=== PATIENT | male | born 1940 | race Two or more races ===

== ENCOUNTER 2017-08-03 06:56 | Outpatient (CLI) | payer OTHER ==
[~2017-08-03 06:56] MED LIST: AZITHROMYCIN500 MG PO; DOLOGESIC CAPSU1 CAP PO; IOPHEN DM-100 MG/5 M PO; NEURONTIN300 MG PO; RAZADYNE4 MG; TUSICOF LIQUID120 ML PO; VITAMIN C500 MG; ZITHROMAX500 MG PO
== END 2017-08-03 07:05 | disposition home or self-care (01) ==
LOC: LAB 06:56
DX: Z80.3 Family history of malignant neoplasm of breast (principal); Z80.0 Family history of malignant neoplasm of digestive organs; D59.8 Other acquired hemolytic anemias; G30.0 Alzheimer's disease with early onset; D70.2 Other drug-induced agranulocytosis; E16.1 Other hypoglycemia; K86.2 Cyst of pancreas; K29.40 Chronic atrophic gastritis without bleeding; D51.1 Vitamin B12 deficiency anemia due to selective vitamin B12 malabsorption with proteinuria; D55.0 Anemia due to glucose-6-phosphate dehydrogenase [G6PD] deficiency; E03.8 Other specified hypothyroidism; E06.3 Autoimmune thyroiditis; R97.0 Elevated carcinoembryonic antigen [CEA]; R97.8 Other abnormal tumor markers

== ENCOUNTER 2018-01-30 07:00 | Outpatient (CLI) | payer OTHER | END 2018-01-30 07:16 | disposition home or self-care (01) | LOC: LAB 07:00 | DX: E11.9 Type 2 diabetes mellitus without complications (principal); I11.9 Hypertensive heart disease without heart failure; I87.2 Venous insufficiency (chronic) (peripheral); E78.2 Mixed hyperlipidemia; E06.9 Thyroiditis, unspecified; E04.2 Nontoxic multinodular goiter; J30.89 Other allergic rhinitis; K86.2 Cyst of pancreas; R80.8 Other proteinuria; R31.29 Other microscopic hematuria; N18.2 Chronic kidney disease, stage 2 (mild); R97.20 Elevated prostate specific antigen [PSA]; D55.0 Anemia due to glucose-6-phosphate dehydrogenase [G6PD] deficiency; E16.8 Other specified disorders of pancreatic internal secretion; G30.8 Other Alzheimer's disease; J39.8 Other specified diseases of upper respiratory tract; J04.10 Acute tracheitis without obstruction; E55.9 Vitamin D deficiency, unspecified; K30 Functional dyspepsia; F51.8 Other sleep disorders not due to a substance or known physiological condition; Z68.29 Body mass index [BMI] 29.0-29.9, adult; Z86.010 Personal history of colon polyps; E03.8 Other specified hypothyroidism ==

== ENCOUNTER 2018-03-08 09:44 | Outpatient (CLI) | payer OTHER | END 2018-03-08 09:46 | disposition home or self-care (01) | LOC: RAD 09:44 | DX: J45.31 Mild persistent asthma with (acute) exacerbation (principal); R06.02 Shortness of breath ==

== ENCOUNTER 2018-05-03 07:47 | Outpatient (CLI) | payer OTHER | END 2018-05-03 09:10 | disposition home or self-care (01) | LOC: LAB 07:47 | DX: I87.2 Venous insufficiency (chronic) (peripheral) (principal); E78.2 Mixed hyperlipidemia; E06.9 Thyroiditis, unspecified; E04.2 Nontoxic multinodular goiter; J30.89 Other allergic rhinitis; K86.2 Cyst of pancreas; R80.8 Other proteinuria; N18.2 Chronic kidney disease, stage 2 (mild); E16.9 Disorder of pancreatic internal secretion, unspecified; G30.8 Other Alzheimer's disease; J39.8 Other specified diseases of upper respiratory tract; J04.10 Acute tracheitis without obstruction; E55.9 Vitamin D deficiency, unspecified; K30 Functional dyspepsia; F51.8 Other sleep disorders not due to a substance or known physiological condition; Z68.29 Body mass index [BMI] 29.0-29.9, adult; Z86.010 Personal history of colon polyps ==

== ENCOUNTER 2019-05-03 06:24 | Outpatient (CLI) | payer OTHER | END 2019-05-03 15:00 | disposition home or self-care (01) | LOC: LAB 06:24 | DX: N40.0 Benign prostatic hyperplasia without lower urinary tract symptoms (principal); R35.1 Nocturia; R97.20 Elevated prostate specific antigen [PSA] ==

== ENCOUNTER 2019-07-24 07:44 | Outpatient (CLI) | payer OTHER | END 2019-07-24 08:02 | disposition home or self-care (01) | LOC: LAB 07:44 | DX: N40.0 Benign prostatic hyperplasia without lower urinary tract symptoms (principal); R35.1 Nocturia; R97.20 Elevated prostate specific antigen [PSA]; I87.2 Venous insufficiency (chronic) (peripheral); I70.0 Atherosclerosis of aorta; E06.9 Thyroiditis, unspecified; E04.2 Nontoxic multinodular goiter; E03.8 Other specified hypothyroidism; J30.89 Other allergic rhinitis; K86.2 Cyst of pancreas; R80.8 Other proteinuria; N18.3 Chronic kidney disease, stage 3 (moderate); R31.29 Other microscopic hematuria; J10.1 Influenza due to other identified influenza virus with other respiratory manifestations; E16.8 Other specified disorders of pancreatic internal secretion; G47.00 Insomnia, unspecified; G30.8 Other Alzheimer's disease; J39.8 Other specified diseases of upper respiratory tract; E55.9 Vitamin D deficiency, unspecified; K30 Functional dyspepsia; Z68.27 Body mass index [BMI] 27.0-27.9, adult; Z86.010 Personal history of colon polyps; N39.0 Urinary tract infection, site not specified; Z80.3 Family history of malignant neoplasm of breast; Z80.0 Family history of malignant neoplasm of digestive organs; D70.2 Other drug-induced agranulocytosis; D51.1 Vitamin B12 deficiency anemia due to selective vitamin B12 malabsorption with proteinuria; D70.8 Other neutropenia; D59.2 Drug-induced nonautoimmune hemolytic anemia; D59.8 Other acquired hemolytic anemias; G30.0 Alzheimer's disease with early onset; K29.40 Chronic atrophic gastritis without bleeding; D51.0 Vitamin B12 deficiency anemia due to intrinsic factor deficiency; E06.3 Autoimmune thyroiditis; E16.2 Hypoglycemia, unspecified; D50.8 Other iron deficiency anemias; D51.8 Other vitamin B12 deficiency anemias; K90.89 Other intestinal malabsorption; R97.0 Elevated carcinoembryonic antigen [CEA]; R97.8 Other abnormal tumor markers; C25.8 Malignant neoplasm of overlapping sites of pancreas; C22.9 Malignant neoplasm of liver, not specified as primary or secondary ==

== ENCOUNTER 2019-09-18 14:59 | Emergency (ER) | payer OTHER ==
[~2019-09-18] VITALS: Ht 172.7 cm; Wt 83.9 kg
[2019-09-18] MEDS ORDERED: RAZADYNE ER16 MG (15:49)
[2019-09-18] MEDS ORDERED: CLARITIN5 MG (15:49)
[2019-09-18] MEDS ORDERED: LEVOTHYROXINE25 MCG (15:49)
== END 2019-09-18 17:21 | disposition home or self-care (01) ==
LOC: ER 14:59
DX: M54.5 Low back pain (principal)

== ENCOUNTER 2019-10-02 14:18 | Outpatient (CLI) | payer OTHER ==
[~2019-10-02 14:18] MED LIST changes: +CLARITIN5 MG; +LEVOTHYROXINE25 MCG; +RAZADYNE ER16 MG
== END 2019-10-02 14:28 | disposition home or self-care (01) ==
LOC: LAB 14:18
DX: I87.2 Venous insufficiency (chronic) (peripheral) (principal); I70.0 Atherosclerosis of aorta; E06.9 Thyroiditis, unspecified; E04.2 Nontoxic multinodular goiter; E03.8 Other specified hypothyroidism; J45.30 Mild persistent asthma, uncomplicated; J30.1 Allergic rhinitis due to pollen; K86.2 Cyst of pancreas; R80.8 Other proteinuria; N18.3 Chronic kidney disease, stage 3 (moderate); R97.20 Elevated prostate specific antigen [PSA]; R31.9 Hematuria, unspecified; D55.0 Anemia due to glucose-6-phosphate dehydrogenase [G6PD] deficiency; J10.1 Influenza due to other identified influenza virus with other respiratory manifestations; E16.8 Other specified disorders of pancreatic internal secretion; G47.09 Other insomnia; M51.37 Other intervertebral disc degeneration, lumbosacral region; G30.8 Other Alzheimer's disease; H81.4 Vertigo of central origin; J39.8 Other specified diseases of upper respiratory tract; E55.9 Vitamin D deficiency, unspecified; K30 Functional dyspepsia; Z68.27 Body mass index [BMI] 27.0-27.9, adult; Z86.010 Personal history of colon polyps; R05 Cough; M54.2 Cervicalgia; C61 Malignant neoplasm of prostate; N40.0 Benign prostatic hyperplasia without lower urinary tract symptoms; R35.1 Nocturia; B96.29 Other Escherichia coli [E. coli] as the cause of diseases classified elsewhere

== ENCOUNTER 2019-10-10 07:07 | Outpatient (CLI) | payer OTHER | END 2019-10-10 07:22 | disposition home or self-care (01) | LOC: NUCLEAR 07:07 | DX: N40.0 Benign prostatic hyperplasia without lower urinary tract symptoms (principal); R35.1 Nocturia; R97.20 Elevated prostate specific antigen [PSA]; C61 Malignant neoplasm of prostate | CPT/HCPCS: 78803; A9503 ==

== ENCOUNTER → 2020-02-04 06:52 | Outpatient (CLI) | payer OTHER | END | disposition home or self-care (01) | LOC: LAB 06:52 | PROVIDERS: ATTEND Internal Medicine Hematology & Oncology | DX: D50.8 Other iron deficiency anemias (principal); E55.9 Vitamin D deficiency, unspecified; E03.8 Other specified hypothyroidism; C25.9 Malignant neoplasm of pancreas, unspecified; R97.8 Other abnormal tumor markers; R97.0 Elevated carcinoembryonic antigen [CEA]; Z80.3 Family history of malignant neoplasm of breast; Z80.0 Family history of malignant neoplasm of digestive organs; D55.0 Anemia due to glucose-6-phosphate dehydrogenase [G6PD] deficiency; D70.2 Other drug-induced agranulocytosis; D51.1 Vitamin B12 deficiency anemia due to selective vitamin B12 malabsorption with proteinuria; D70.8 Other neutropenia; D59.8 Other acquired hemolytic anemias; G30.0 Alzheimer's disease with early onset; K86.2 Cyst of pancreas; K29.40 Chronic atrophic gastritis without bleeding; D51.0 Vitamin B12 deficiency anemia due to intrinsic factor deficiency; E06.3 Autoimmune thyroiditis; E16.2 Hypoglycemia, unspecified; I87.2 Venous insufficiency (chronic) (peripheral); I70.0 Atherosclerosis of aorta; E06.5 Other chronic thyroiditis; E04.2 Nontoxic multinodular goiter; J45.30 Mild persistent asthma, uncomplicated; J30.1 Allergic rhinitis due to pollen; R80.8 Other proteinuria; N18.3 Chronic kidney disease, stage 3 (moderate); R97.20 Elevated prostate specific antigen [PSA]; R31.29 Other microscopic hematuria; J10.1 Influenza due to other identified influenza virus with other respiratory manifestations; E16.8 Other specified disorders of pancreatic internal secretion; G47.00 Insomnia, unspecified; G30.8 Other Alzheimer's disease; H81.4 Vertigo of central origin; Z86.010 Personal history of colon polyps; Z68.27 Body mass index [BMI] 27.0-27.9, adult; K30 Functional dyspepsia ==

== ENCOUNTER 2020-02-14 07:03 | Outpatient (CLI) | payer OTHER | END 2020-02-14 07:14 | disposition home or self-care (01) | LOC: LAB 07:03 | PROVIDERS: ATTEND Internal Medicine Hematology & Oncology | DX: C61 Malignant neoplasm of prostate (principal); N40.0 Benign prostatic hyperplasia without lower urinary tract symptoms; R97.20 Elevated prostate specific antigen [PSA]; D70.2 Other drug-induced agranulocytosis; D51.1 Vitamin B12 deficiency anemia due to selective vitamin B12 malabsorption with proteinuria; D70.8 Other neutropenia; D59.2 Drug-induced nonautoimmune hemolytic anemia; D59.8 Other acquired hemolytic anemias; G30.0 Alzheimer's disease with early onset; K86.2 Cyst of pancreas; Z80.0 Family history of malignant neoplasm of digestive organs; K29.40 Chronic atrophic gastritis without bleeding; Z80.3 Family history of malignant neoplasm of breast; D51.0 Vitamin B12 deficiency anemia due to intrinsic factor deficiency; E03.8 Other specified hypothyroidism; E06.3 Autoimmune thyroiditis; E16.2 Hypoglycemia, unspecified; R35.1 Nocturia ==

== ENCOUNTER → 2020-10-27 07:13 | Outpatient (CLI) | payer OTHER | END | disposition home or self-care (01) | LOC: LAB 07:13 | PROVIDERS: ATTEND Internal Medicine | DX: C61 Malignant neoplasm of prostate (principal); E03.8 Other specified hypothyroidism; N39.0 Urinary tract infection, site not specified; I87.2 Venous insufficiency (chronic) (peripheral); I70.0 Atherosclerosis of aorta; E06.9 Thyroiditis, unspecified; E04.2 Nontoxic multinodular goiter; J45.30 Mild persistent asthma, uncomplicated; J30.1 Allergic rhinitis due to pollen; K86.2 Cyst of pancreas; R80.8 Other proteinuria; N18.30 Chronic kidney disease, stage 3 unspecified; R97.20 Elevated prostate specific antigen [PSA]; R31.9 Hematuria, unspecified; D55.0 Anemia due to glucose-6-phosphate dehydrogenase [G6PD] deficiency; J10.1 Influenza due to other identified influenza virus with other respiratory manifestations; E16.8 Other specified disorders of pancreatic internal secretion; G47.09 Other insomnia; M51.37 Other intervertebral disc degeneration, lumbosacral region; G30.8 Other Alzheimer's disease; H81.4 Vertigo of central origin; J39.8 Other specified diseases of upper respiratory tract; J04.10 Acute tracheitis without obstruction; E55.9 Vitamin D deficiency, unspecified; E53.8 Deficiency of other specified B group vitamins; K30 Functional dyspepsia; Z68.27 Body mass index [BMI] 27.0-27.9, adult; Z86.010 Personal history of colon polyps; N18.2 Chronic kidney disease, stage 2 (mild) ==

== ENCOUNTER 2020-12-01 07:03 | Outpatient (CLI) | payer OTHER | END 2020-12-01 15:24 | disposition home or self-care (01) | LOC: LAB 07:03 | PROVIDERS: ATTEND Urology | DX: C61 Malignant neoplasm of prostate (principal); R31.1 Benign essential microscopic hematuria ==

== ENCOUNTER 2020-12-22 10:35 | Emergency (ER) | payer OTHER ==
[~2020-12-22] VITALS: Ht 172.7 cm; Wt 81.6 kg
== END 2020-12-22 15:59 | disposition home or self-care (01) ==
LOC: ER 10:35
DX: R42 Dizziness and giddiness (principal)

== ENCOUNTER → 2020-12-26 06:20 | Outpatient (CLI) | payer OTHER ==
[~2020-12-26 06:20] MED LIST changes: +MECLIZINE HCL25 MG PO; +PEPCID AC20 MG PO
== END | disposition home or self-care (01) ==
LOC: LAB 06:20
PROVIDERS: ATTEND Internal Medicine Hematology & Oncology
DX: D50.8 Other iron deficiency anemias (principal); I10 Essential (primary) hypertension; R74.02 Elevation of levels of lactic acid dehydrogenase [LDH]; K76.89 Other specified diseases of liver; D51.8 Other vitamin B12 deficiency anemias; R97.0 Elevated carcinoembryonic antigen [CEA]; R97.8 Other abnormal tumor markers; R97.20 Elevated prostate specific antigen [PSA]; Z80.3 Family history of malignant neoplasm of breast; Z80.0 Family history of malignant neoplasm of digestive organs; C61 Malignant neoplasm of prostate; D70.2 Other drug-induced agranulocytosis; D51.1 Vitamin B12 deficiency anemia due to selective vitamin B12 malabsorption with proteinuria; D70.8 Other neutropenia; D59.2 Drug-induced nonautoimmune hemolytic anemia; G30.0 Alzheimer's disease with early onset; K86.2 Cyst of pancreas; K29.40 Chronic atrophic gastritis without bleeding; D51.0 Vitamin B12 deficiency anemia due to intrinsic factor deficiency; E03.8 Other specified hypothyroidism; E06.3 Autoimmune thyroiditis; E16.2 Hypoglycemia, unspecified; R00.2 Palpitations; E11.9 Type 2 diabetes mellitus without complications; E78.2 Mixed hyperlipidemia

== ENCOUNTER 2020-12-29 17:16 | Outpatient (CLI) | payer OTHER ==
[~2020-12-29 17:16] MED LIST changes: -MECLIZINE HCL25 MG PO; -PEPCID AC20 MG PO
== END 2020-12-29 17:20 | disposition home or self-care (01) ==
LOC: LAB 17:16
PROVIDERS: ATTEND Urology
DX: R97.20 Elevated prostate specific antigen [PSA] (principal)

== ENCOUNTER 2021-02-11 07:13 | Outpatient (CLI) | payer OTHER | END 2021-02-11 07:15 | disposition home or self-care (01) | LOC: SONOGRAMA 07:13 | PROVIDERS: ATTEND Urology | DX: C61 Malignant neoplasm of prostate (principal); R97.20 Elevated prostate specific antigen [PSA]; D29.1 Benign neoplasm of prostate ==

== ENCOUNTER 2021-02-20 10:58 | Emergency (ER) | payer OTHER ==
[~2021-02-20] VITALS: Ht 172.7 cm; Wt 81.6 kg
[2021-02-20] MEDS ORDERED: MECLIZINE HCL25 MG PO (15:00)
[2021-02-20] MEDS ORDERED: PEPCID AC20 MG PO (15:00)
== END 2021-02-20 15:39 | disposition home or self-care (01) ==
LOC: ER 10:58
DX: R11.0 Nausea (principal); R42 Dizziness and giddiness; R10.13 Epigastric pain

== ENCOUNTER 2021-03-06 06:47 | Outpatient (CLI) | payer OTHER ==
[~2021-03-06 06:47] MED LIST changes: +MECLIZINE HCL25 MG PO; +PEPCID AC20 MG PO
== END 2021-03-06 06:48 | disposition home or self-care (01) ==
LOC: LAB 06:47 → RAD 06:47 → LAB 06:48
PROVIDERS: ATTEND Specialist
DX: I10 Essential (primary) hypertension (principal); D64.89 Other specified anemias; R82.998 Other abnormal findings in urine; E10.9 Type 1 diabetes mellitus without complications; R70.0 Elevated erythrocyte sedimentation rate; M05.79 Rheumatoid arthritis with rheumatoid factor of multiple sites without organ or systems involvement; R76.0 Raised antibody titer; M32.8 Other forms of systemic lupus erythematosus; M06.4 Inflammatory polyarthropathy; M1A.09X0 Idiopathic chronic gout, multiple sites, without tophus (tophi); M19.049 Primary osteoarthritis, unspecified hand

== ENCOUNTER 2021-05-09 07:13 | Outpatient (CLI) | payer OTHER | END 2021-05-09 07:20 | disposition home or self-care (01) | LOC: LAB 07:13 | PROVIDERS: ATTEND Internal Medicine Hematology & Oncology | DX: I10 Essential (primary) hypertension (principal); R74.02 Elevation of levels of lactic acid dehydrogenase [LDH]; K76.89 Other specified diseases of liver; R97.0 Elevated carcinoembryonic antigen [CEA]; R97.8 Other abnormal tumor markers; R97.20 Elevated prostate specific antigen [PSA]; Z80.3 Family history of malignant neoplasm of breast; Z80.0 Family history of malignant neoplasm of digestive organs; C61 Malignant neoplasm of prostate; D55.0 Anemia due to glucose-6-phosphate dehydrogenase [G6PD] deficiency; D70.2 Other drug-induced agranulocytosis; D51.1 Vitamin B12 deficiency anemia due to selective vitamin B12 malabsorption with proteinuria; D70.8 Other neutropenia; D59.8 Other acquired hemolytic anemias; G30.0 Alzheimer's disease with early onset; K86.2 Cyst of pancreas; K29.40 Chronic atrophic gastritis without bleeding; E03.8 Other specified hypothyroidism; E06.3 Autoimmune thyroiditis; E16.2 Hypoglycemia, unspecified ==

== ENCOUNTER 2021-06-06 09:01 | Emergency (ER) | payer OTHER ==
[~2021-06-06] VITALS: Ht 172.7 cm; Wt 81.6 kg
== END 2021-06-06 12:29 | disposition home or self-care (01) ==
LOC: ER 09:01
DX: B34.9 Viral infection, unspecified (principal); Z20.822 Contact with and (suspected) exposure to COVID-19

== ENCOUNTER 2021-09-05 07:07 | Outpatient (CLI) | payer OTHER | END 2021-09-05 08:16 | disposition home or self-care (01) | LOC: LAB 07:07 | PROVIDERS: ATTEND Internal Medicine Hematology & Oncology | DX: D50.8 Other iron deficiency anemias (principal); R79.9 Abnormal finding of blood chemistry, unspecified; I10 Essential (primary) hypertension; R74.02 Elevation of levels of lactic acid dehydrogenase [LDH]; K76.89 Other specified diseases of liver; E55.9 Vitamin D deficiency, unspecified; C25.9 Malignant neoplasm of pancreas, unspecified; R97.8 Other abnormal tumor markers; R97.0 Elevated carcinoembryonic antigen [CEA]; R97.20 Elevated prostate specific antigen [PSA]; Z80.3 Family history of malignant neoplasm of breast; Z80.0 Family history of malignant neoplasm of digestive organs; C61 Malignant neoplasm of prostate; D55.0 Anemia due to glucose-6-phosphate dehydrogenase [G6PD] deficiency; D70.2 Other drug-induced agranulocytosis; D51.1 Vitamin B12 deficiency anemia due to selective vitamin B12 malabsorption with proteinuria; D70.8 Other neutropenia; D59.8 Other acquired hemolytic anemias; G30.0 Alzheimer's disease with early onset; K86.2 Cyst of pancreas; K29.40 Chronic atrophic gastritis without bleeding; D51.0 Vitamin B12 deficiency anemia due to intrinsic factor deficiency; E03.9 Hypothyroidism, unspecified; E06.3 Autoimmune thyroiditis ==

== ENCOUNTER 2021-10-20 17:47 | Emergency (ER) | payer OTHER ==
[~2021-10-20] VITALS: Ht 172.7 cm; Wt 82.1 kg
[2021-10-20] MEDS ORDERED: MONTELUKAST 10 MG (18:27)
== END 2021-10-20 21:33 | disposition home or self-care (01) ==
LOC: ER 17:47
DX: U07.1 COVID-19 (principal); R50.9 Fever, unspecified; R53.81 Other malaise; R05.9 Cough, unspecified; J30.9 Allergic rhinitis, unspecified; E03.9 Hypothyroidism, unspecified; Z87.891 Personal history of nicotine dependence

== ENCOUNTER 2021-12-15 06:45 | Outpatient (CLI) | payer OTHER ==
[~2021-12-15 06:45] MED LIST changes: +MONTELUKAST 10 MG
== END 2021-12-15 06:50 | disposition home or self-care (01) ==
LOC: LAB 06:45
PROVIDERS: ATTEND Internal Medicine Hematology & Oncology
DX: D50.8 Other iron deficiency anemias (principal); I10 Essential (primary) hypertension; R74.02 Elevation of levels of lactic acid dehydrogenase [LDH]; K76.89 Other specified diseases of liver; C25.9 Malignant neoplasm of pancreas, unspecified; R97.8 Other abnormal tumor markers; R97.0 Elevated carcinoembryonic antigen [CEA]; R97.20 Elevated prostate specific antigen [PSA]; Z20.3 Contact with and (suspected) exposure to rabies; C61 Malignant neoplasm of prostate; D70.2 Other drug-induced agranulocytosis; D51.1 Vitamin B12 deficiency anemia due to selective vitamin B12 malabsorption with proteinuria; D70.8 Other neutropenia; D59.2 Drug-induced nonautoimmune hemolytic anemia; G30.0 Alzheimer's disease with early onset; K86.2 Cyst of pancreas; K29.40 Chronic atrophic gastritis without bleeding; D51.0 Vitamin B12 deficiency anemia due to intrinsic factor deficiency; E03.9 Hypothyroidism, unspecified; E06.3 Autoimmune thyroiditis; E16.2 Hypoglycemia, unspecified; Z80.0 Family history of malignant neoplasm of digestive organs

== ENCOUNTER 2022-02-11 14:09 | Outpatient (CLI) | payer OTHER | END 2022-02-11 14:10 | disposition home or self-care (01) | LOC: NUCLEAR 14:09 | PROVIDERS: ATTEND Specialist | DX: M81.0 Age-related osteoporosis without current pathological fracture (principal) ==

== ENCOUNTER → 2022-02-17 06:26 | Outpatient (CLI) | payer OTHER | END | disposition home or self-care (01) | LOC: LAB 06:26 | PROVIDERS: ATTEND Urology | DX: R97.20 Elevated prostate specific antigen [PSA] (principal) ==

== ENCOUNTER 2022-05-17 06:59 | Outpatient (CLI) | payer OTHER | END 2022-05-17 07:00 | disposition home or self-care (01) | LOC: LAB 06:59 | PROVIDERS: ATTEND Internal Medicine Hematology & Oncology | DX: C61 Malignant neoplasm of prostate (principal); D55.0 Anemia due to glucose-6-phosphate dehydrogenase [G6PD] deficiency; D70.2 Other drug-induced agranulocytosis; D51.1 Vitamin B12 deficiency anemia due to selective vitamin B12 malabsorption with proteinuria; D70.8 Other neutropenia; G30.0 Alzheimer's disease with early onset; K86.2 Cyst of pancreas; K29.40 Chronic atrophic gastritis without bleeding; E03.9 Hypothyroidism, unspecified; E06.3 Autoimmune thyroiditis; E16.2 Hypoglycemia, unspecified; R97.20 Elevated prostate specific antigen [PSA]; Z80.3 Family history of malignant neoplasm of breast ==

== ENCOUNTER 2022-06-29 06:43 | Outpatient (CLI) | payer OTHER | END 2022-06-29 06:52 | disposition home or self-care (01) | LOC: LAB 06:43 | PROVIDERS: ATTEND Internal Medicine Hematology & Oncology | DX: N18.30 Chronic kidney disease, stage 3 unspecified (principal) ==

== ENCOUNTER → 2022-08-13 06:26 | Outpatient (CLI) | payer OTHER | END | disposition home or self-care (01) | LOC: LAB 06:26 | PROVIDERS: ATTEND Internal Medicine Hematology & Oncology | DX: D50.8 Other iron deficiency anemias (principal); I10 Essential (primary) hypertension; R74.02 Elevation of levels of lactic acid dehydrogenase [LDH]; K76.89 Other specified diseases of liver; C25.9 Malignant neoplasm of pancreas, unspecified; R97.8 Other abnormal tumor markers; R97.20 Elevated prostate specific antigen [PSA]; Z80.3 Family history of malignant neoplasm of breast; C61 Malignant neoplasm of prostate; D70.2 Other drug-induced agranulocytosis; D51.1 Vitamin B12 deficiency anemia due to selective vitamin B12 malabsorption with proteinuria; D70.8 Other neutropenia; D59.2 Drug-induced nonautoimmune hemolytic anemia; D59.8 Other acquired hemolytic anemias; G30.0 Alzheimer's disease with early onset; K86.2 Cyst of pancreas; K29.40 Chronic atrophic gastritis without bleeding; D51.0 Vitamin B12 deficiency anemia due to intrinsic factor deficiency; E06.3 Autoimmune thyroiditis; E03.9 Hypothyroidism, unspecified; E16.2 Hypoglycemia, unspecified ==

== ENCOUNTER 2022-12-09 04:10 | Emergency (ER) | payer OTHER ==
[~2022-12-09] VITALS: Ht 172.7 cm; Wt 81.6 kg
== END 2022-12-09 07:07 | disposition home or self-care (01) ==
LOC: ER 04:10
DX: K29.00 Acute gastritis without bleeding (principal); K59.00 Constipation, unspecified; R10.13 Epigastric pain
CPT/HCPCS: 96365; 96372; 99282; J2765; J3490

== ENCOUNTER 2022-12-23 06:54 | Outpatient (CLI) | payer OTHER | END 2022-12-23 06:55 | disposition home or self-care (01) | LOC: LAB 06:54 | PROVIDERS: ATTEND Internal Medicine Gastroenterology | DX: R10.13 Epigastric pain (principal) ==

== ENCOUNTER 2022-12-23 07:05 | Outpatient (CLI) | payer OTHER | END 2022-12-23 07:09 | disposition home or self-care (01) | LOC: SONOGRAMA 07:05 | PROVIDERS: ATTEND Internal Medicine Gastroenterology | DX: R10.13 Epigastric pain (principal) ==

== ENCOUNTER 2023-01-28 08:37 | Outpatient (CLI) | payer OTHER | END 2023-01-28 08:41 | disposition home or self-care (01) | LOC: RAD 08:37 | PROVIDERS: ATTEND Internal Medicine | DX: M25.562 Pain in left knee (principal) ==

== ENCOUNTER 2023-02-20 08:33 | Emergency (ER) | payer OTHER ==
[~2023-02-20] VITALS: Ht 172.7 cm; Wt 81.6 kg
== END 2023-02-20 12:07 | disposition home or self-care (01) ==
LOC: ER
PROVIDERS: General Practice
DX: U07.1 COVID-19 (principal); E03.9 Hypothyroidism, unspecified
CPT/HCPCS: 36415; 96372; 99284; J1100

== ENCOUNTER 2024-03-08 06:44 | Outpatient (CLI) | payer OTHER ==
[2024-03-08 07:30] LABS: HEMATOCRIT 39.2 % (39.0-48.0); HEMOGLOBIN 13.6 g/dL (13-16.00); MEAN CELL VOLUME 99.4 fL (80.0-100.00); MEAN CORPUSCULAR HEMOGLOBIN 34.4 pg (27.00-32.0); MEAN CORPUSCULAR HGB CONC 34.6 g/dl (32.0-36.0); PLATELET COUNT 167 K/uL (150-450); RED BLOOD COUNT 3.94 M/uL (4.00-6.00); RED CELL DISTRIBUTION WIDTH 13.5 % (11.5-14.5)
[2024-03-08 07:46] LABS: URINE APPEARANCE Cloudy; URINE BILIRRUBIN Negative (NEGATIVE); URINE BLOOD Trace; URINE COLOR Yellow; URINE GLUCOSE Negative (NEGATIVE); URINE KETONE Negative (NEGATIVE); URINE LEUKOCYTE Negative; URINE NITRATE Negative; URINE PROTEIN Negative (NEGATIVE); URINE UROBILINOGEN 0.2 E.U./dl
[2024-03-08 07:48] LABS: URINE BACTERIA 7.5 uL (0.0-1933); URINE RBC 39.6 uL (0.0-20.8)
[2024-03-08 07:53] LABS: URINE EPITHELIAL CELLS 0.7 uL (0.0-38.8); URINE WBC 1.6 uL (0.0-23.2)
[2024-03-08 08:20] LABS: ALBUMIN 3.7 gm/dL (3.4-5.0); BILIRUBIN TOTAL 0.63 mg/dL (0.3-1.2); CALCIUM 9.2 mg/dL (8.5-10.1); CREATININE SERUM 1.39 mg/dL (0.70-1.30); GFR 48.68; GLOBULINA 3.7 G/DL (2.4-3.5); MAGNESIUM 2.4 mg/dL (1.8-2.4); PHOSPHOROUS 2.6 mg/dL (2.5-4.9); POTASSIUM 4.15 mEq/L (3.5-5.1); TOTAL PROTEIN 7.4 gm/dL (6.4-8.2)
[2024-03-08 08:47] LABS: URIC ACID 5.4 mg/dL (3.5-8.5)
== END 2024-03-08 06:50 | disposition home or self-care (01) ==
LOC: LAB 06:44
PROVIDERS: ATTEND Specialist
DX: E79.0 Hyperuricemia without signs of inflammatory arthritis and tophaceous disease (principal); I10 Essential (primary) hypertension; D64.9 Anemia, unspecified; E10.9 Type 1 diabetes mellitus without complications; E83.39 Other disorders of phosphorus metabolism; E61.2 Magnesium deficiency

== ENCOUNTER 2024-03-08 07:07 | Outpatient (CLI) | payer OTHER | END 2024-03-08 07:12 | disposition home or self-care (01) | LOC: RAD 07:07 | PROVIDERS: ATTEND Specialist | DX: M17.0 Bilateral primary osteoarthritis of knee (principal); M17.11 Unilateral primary osteoarthritis, right knee; M17.12 Unilateral primary osteoarthritis, left knee ==

== ENCOUNTER 2024-03-17 07:04 | Outpatient (CLI) | payer OTHER ==
[2024-03-17 09:36] LABS: ALBUMIN 3.6 gm/dL (3.4-5.0); BILIRUBIN TOTAL 0.49 mg/dL (0.3-1.2); CALCIUM 9.1 mg/dL (8.5-10.1); CREATININE SERUM 1.43 mg/dL (0.70-1.30); GFR 47.11; GLOBULINA 3.7 G/DL (2.4-3.5); POTASSIUM 4.28 mEq/L (3.5-5.1); TOTAL PROTEIN 7.3 gm/dL (6.4-8.2)
[2024-03-17 09:43] LABS: PROSTATIC SPECIFIC ANTIGEN 6.81 NG/ML (0.010-4.00)
[2024-03-17 09:58] LABS: HEMATOCRIT 37.9 % (39.0-48.0); HEMOGLOBIN 13.1 g/dL (13-16.00); MEAN CORPUSCULAR HEMOGLOBIN 33.7 pg (27.00-32.0); MEAN CORPUSCULAR HGB CONC 34.4 g/dl (32.0-36.0); PLATELET COUNT 168 K/uL (150-450); RED BLOOD COUNT 3.87 M/uL (4.00-6.00); RED CELL DISTRIBUTION WIDTH 13.9 % (11.5-14.5)
[2024-03-19 08:28] LABS: MANUAL PLATELET COUNT 190
[2024-03-19 08:30] LABS: PLATELET ESTIMATE NORMAL (NORMAL)
[2024-03-19 10:04] LABS: FOLIC ACID > 20.00 ng/ml (4.78-20); VITAMIN D3 25 HYDROXY 71.42 ng/ml (30-120)
== END 2024-03-17 07:05 | disposition home or self-care (01) ==
LOC: LAB 07:04
PROVIDERS: ATTEND Internal Medicine Hematology & Oncology
DX: C61 Malignant neoplasm of prostate (principal); Z80.3 Family history of malignant neoplasm of breast; Z80.0 Family history of malignant neoplasm of digestive organs; D55.0 Anemia due to glucose-6-phosphate dehydrogenase [G6PD] deficiency; D70.2 Other drug-induced agranulocytosis; D55.1 Anemia due to other disorders of glutathione metabolism; D70.8 Other neutropenia; D59.8 Other acquired hemolytic anemias; G30.0 Alzheimer's disease with early onset; K86.2 Cyst of pancreas; K29.40 Chronic atrophic gastritis without bleeding; D51.0 Vitamin B12 deficiency anemia due to intrinsic factor deficiency; E03.9 Hypothyroidism, unspecified; E06.3 Autoimmune thyroiditis; E16.2 Hypoglycemia, unspecified; R97.20 Elevated prostate specific antigen [PSA]

== ENCOUNTER 2024-04-21 06:55 | Emergency (ER) | payer OTHER ==
[~2024-04-21] VITALS: Ht 172.7 cm; Wt 81.6 kg
[2024-04-21] MEDS ORDERED: GUAIFENESIN 200 MG/10 ML BLIST.PACK PO ONE (09:30)
[2024-04-21 09:53] LABS: HEMATOCRIT 42.2 % (39.0-48.0); HEMOGLOBIN 14.5 g/dL (13-16.00); MEAN CELL VOLUME 98.7 fL (80.0-100.00); MEAN CORPUSCULAR HEMOGLOBIN 33.9 pg (27.00-32.0); MEAN CORPUSCULAR HGB CONC 34.4 g/dl (32.0-36.0); PLATELET COUNT 159 K/uL (150-450); RED BLOOD COUNT 4.27 M/uL (4.00-6.00); RED CELL DISTRIBUTION WIDTH 14.2 % (11.5-14.5)
== END 2024-04-21 11:12 ==
LOC: ER 06:57
PROVIDERS: General Practice
DX: B34.9 Viral infection, unspecified (principal); Z85.89 Personal history of malignant neoplasm of other organs and systems; E03.8 Other specified hypothyroidism; Z20.822 Contact with and (suspected) exposure to COVID-19

== ENCOUNTER 2024-05-14 09:14 | Outpatient (CLI) | payer OTHER | END 2024-05-14 09:15 | disposition home or self-care (01) | LOC: NUCLEAR 09:14 | DX: M81.0 Age-related osteoporosis without current pathological fracture (principal) ==

== ENCOUNTER 2024-06-26 06:06 | Outpatient (CLI) | payer OTHER ==
[2024-06-26 06:59] LABS: HEMATOCRIT 40.1 % (39.0-48.0); HEMOGLOBIN 13.5 g/dL (13-16.00); MEAN CELL VOLUME 99.7 fL (80.0-100.00); MEAN CORPUSCULAR HEMOGLOBIN 33.5 pg (27.00-32.0); MEAN CORPUSCULAR HGB CONC 33.6 g/dl (32.0-36.0); PLATELET COUNT 164 K/uL (150-450); RED BLOOD COUNT 4.02 M/uL (4.00-6.00); RED CELL DISTRIBUTION WIDTH 13.4 % (11.5-14.5)
[2024-06-26 07:36] LABS: MANUAL PLATELET COUNT 252
[2024-06-26 07:37] LABS: PLATELET ESTIMATE NORMAL (NORMAL)
[2024-06-26 08:14] LABS: ALBUMIN 3.7 gm/dL (3.4-5.0); BILIRUBIN TOTAL 0.69 mg/dL (0.3-1.2); CALCIUM 9.1 mg/dL (8.5-10.1); CREATININE SERUM 1.43 mg/dL (0.70-1.30); GFR 47.11; GLOBULINA 3.8 G/DL (2.4-3.5); POTASSIUM 3.81 mEq/L (3.5-5.1); TOTAL PROTEIN 7.5 gm/dL (6.4-8.2)
[2024-06-26 08:15] LABS: PROSTATIC SPECIFIC ANTIGEN 4.75 NG/ML (0.010-4.00)
== END 2024-06-26 06:07 | disposition home or self-care (01) ==
LOC: LAB 06:06
PROVIDERS: ATTEND Internal Medicine Hematology & Oncology
DX: D50.8 Other iron deficiency anemias (principal); R79.9 Abnormal finding of blood chemistry, unspecified; I10 Essential (primary) hypertension; R74.02 Elevation of levels of lactic acid dehydrogenase [LDH]; K76.89 Other specified diseases of liver; C25.9 Malignant neoplasm of pancreas, unspecified; R97.8 Other abnormal tumor markers; R97.0 Elevated carcinoembryonic antigen [CEA]; R97.20 Elevated prostate specific antigen [PSA]; Z80.3 Family history of malignant neoplasm of breast; Z80.0 Family history of malignant neoplasm of digestive organs; C61 Malignant neoplasm of prostate; D55.0 Anemia due to glucose-6-phosphate dehydrogenase [G6PD] deficiency; D70.2 Other drug-induced agranulocytosis; D51.1 Vitamin B12 deficiency anemia due to selective vitamin B12 malabsorption with proteinuria; D70.8 Other neutropenia; D59.8 Other acquired hemolytic anemias; G30.0 Alzheimer's disease with early onset; K86.2 Cyst of pancreas; K29.40 Chronic atrophic gastritis without bleeding; D51.0 Vitamin B12 deficiency anemia due to intrinsic factor deficiency; E03.9 Hypothyroidism, unspecified; E06.3 Autoimmune thyroiditis

== ENCOUNTER → 2024-10-24 06:30 | Outpatient (CLI) | payer OTHER ==
[2024-10-24 07:39] LABS: BASO % 0.6 % (0.1-1.2); EOS # 0.07 (0.04-0.54); EOS % 2.2 % (0.7-7.0); HEMATOCRIT 40.6 % (40.1-51.0); HEMOGLOBIN 13.7 g/dL (13.7-17.5); LYMPH # 1.49 (1.18-3.74); MEAN CORPUSCULAR HEMOGLOBIN 32.9 pg (25.6-32.2); MONO # 0.56 (0.24-0.82); NEUT % 33.9 % (34.0-71.1); PLATELET COUNT 162 K/uL (163-369); RED BLOOD COUNT 4.17 M/uL (4.63-6.08); RED CELL DISTRIBUTION WIDTH 12.2 % (11.6-14.4)
[2024-10-24 07:49] LABS: MONO % 17.3 % (4.7-12.5)
[2024-10-24 08:38] LABS: % SATURACION 20.5 % (20-50); ALBUMIN 3.7 gm/dL (3.4-5.0); BILIRUBIN TOTAL 0.49 mg/dL (0.3-1.2); CALCIUM 8.6 mg/dL (8.5-10.1); CREATININE SERUM 1.42 mg/dL (0.70-1.30); FERRITIN 159.9 NG/ML (26-388); GFR 47.5; GLOBULINA 3.7 G/DL (2.4-3.5); POTASSIUM 3.96 mEq/L (3.5-5.1); TOTAL PROTEIN 7.4 gm/dL (6.4-8.2)
[2024-10-24 08:43] LABS: PROSTATIC SPECIFIC ANTIGEN 5.28 NG/ML (0.010-4.00)
[2024-10-24 14:35] LABS: FOLIC ACID > 20.00 ng/ml (4.78-20)
== END | disposition home or self-care (01) ==
LOC: LAB 06:30
PROVIDERS: ATTEND Internal Medicine Hematology & Oncology
DX: D50.8 Other iron deficiency anemias (principal); Z80.3 Family history of malignant neoplasm of breast; Z80.0 Family history of malignant neoplasm of digestive organs; C61 Malignant neoplasm of prostate; D55.0 Anemia due to glucose-6-phosphate dehydrogenase [G6PD] deficiency; D70.2 Other drug-induced agranulocytosis; D51.1 Vitamin B12 deficiency anemia due to selective vitamin B12 malabsorption with proteinuria; D70.8 Other neutropenia; D59.8 Other acquired hemolytic anemias; G30.0 Alzheimer's disease with early onset; K86.2 Cyst of pancreas; K29.40 Chronic atrophic gastritis without bleeding; D51.0 Vitamin B12 deficiency anemia due to intrinsic factor deficiency; E03.9 Hypothyroidism, unspecified; E06.3 Autoimmune thyroiditis; R97.20 Elevated prostate specific antigen [PSA]; R79.9 Abnormal finding of blood chemistry, unspecified; I10 Essential (primary) hypertension; R74.02 Elevation of levels of lactic acid dehydrogenase [LDH]; K76.89 Other specified diseases of liver; R97.0 Elevated carcinoembryonic antigen [CEA]; C25.9 Malignant neoplasm of pancreas, unspecified

== ENCOUNTER 2024-11-28 09:37 | Emergency (ER) | payer OTHER ==
[~2024-11-28] VITALS: Ht 172.7 cm; Wt 81.6 kg
[2024-11-28 09:52] VITALS: BP 140/71; O2SAT 97
[2024-11-28] MEDS ORDERED: ZITHROMAX500 MG PO (10:28)
== END 2024-11-28 10:33 | disposition home or self-care (01) ==
LOC: ER 09:38
DX: J30.9 Allergic rhinitis, unspecified (principal)